=== PATIENT | female | born 1965 | race Caucasian/White ===

== ENCOUNTER 2022-01-15 12:57 | Emergency (ER) | payer OTHER, MEDICAID ==
[2022-01-15] MEDS ORDERED: Ondansetron 4 MG Tab.DIS PO ONE ×2 (12:58→13:31)
[2022-01-15] MEDS ORDERED: Sodium Chloride 0.9% 1,000 ML IV ONE ×2 (13:32→16:08)
[2022-01-15 13:38] LABS: ESTIMATED GFR 106 mL/min (>60)
[2022-01-15] MEDS ORDERED: Ondansetron 4 MG/2 ML SDV ONE (16:08)
[2022-01-15] MEDS: Ondansetron 4 MG/2 ML SDV IVPUSH ONE ×2 (16:08→19:34)
[2022-01-15 17:12] LABS: CORONAVIRUS COVID-19 NAA NEGATIVE (NEGATIVE)
[2022-01-15] MEDS ORDERED: Cephalexin 500 MG Cap PO ONE ×2 (18:44→19:25)
== END 2022-01-15 20:08 | disposition home or self-care (01) ==
LOC: FB.ED 12:57
DX: L03.115 Cellulitis of right lower limb (principal); R11.2 Nausea with vomiting, unspecified; E11.9 Type 2 diabetes mellitus without complications; Z79.4 Long term (current) use of insulin; Z86.73 Personal history of transient ischemic attack (TIA), and cerebral infarction without residual deficits; Z20.822 Contact with and (suspected) exposure to COVID-19
CPT/HCPCS: 0241U; 36415; 80053; 82947; 83605; 83880; 84484; 85025; 87040; 93005; 96361; 96374; 99284; A9270; J2405; J7030; Q0162

== ENCOUNTER 2022-01-25 13:31 | Inpatient (IN) | payer OTHER, MEDICAID ==
[2022-01-25] MEDS ORDERED: Ondansetron 4 MG/2 ML SDV IVPUSH ONE (14:31)
[2022-01-25] MEDS ORDERED: Morphine 4 MG/ML VIAL IVPUSH ONE (14:31)
[2022-01-25] MEDS ORDERED: Iopamidol 755 Mg/ML 100 ML Bottle IV ONE (14:35)
[2022-01-25] MEDS: Sodium Chloride 0.9% 10 ML Syringe FLUSH PRN (14:44)
[2022-01-25] MEDS ORDERED: Sodium Chloride 0.9% 1,000 ML IV SCH (14:45)
[2022-01-25 14:55] LABS: ESTIMATED GFR 106 mL/min (>60)
[2022-01-25 15:03] LABS: ACETAMINOPHEN < 2 ug/mL (<2)
[2022-01-25] MEDS: cefTRIAXone 1 GM Vial IVPUSH SCH (16:14)
[2022-01-25] MEDS: Sodium Chloride 0.9% 1,000 ML IV SCH (16:15)
[2022-01-25] MEDS ORDERED: Albuterol/Ipratropium 3.0-0.5 MG/3 ML Neb Soln NEB ONE (16:16)
[2022-01-25] MEDS ORDERED: predniSONE 20 MG Tab PO ONE (16:17)
[2022-01-25] MEDS ORDERED: Azithromycin 500 MG Tab PO STA (16:18)
[2022-01-25] MEDS ORDERED: Codeine/guaiFENesin 10-100 MG/5 ML Syrup 5 ML Cup PO STA (16:44)
[2022-01-25] MEDS ORDERED: Ondansetron 4 MG/2 ML SDV IVPUSH PRN (17:01)
[2022-01-25] MEDS ORDERED: LORazepam 2 MG/ML SDV IVPUSH PRN (17:43)
[2022-01-25] MEDS ORDERED: Nicotine 7 MG/24 Hr Patch TRDERM SCH (19:00)
[2022-01-25] MEDS: Morphine 2 MG/ML SYRINGE IVPUSH PRN (19:55)
[2022-01-26] MEDS: Sodium Chloride 0.9% 1,000 ML IV SCH ×3 (02:10→23:27)
[2022-01-26] MEDS: Morphine 2 MG/ML SYRINGE IVPUSH PRN ×6 (02:55→23:32)
[2022-01-26 06:40] LABS: ESTIMATED GFR 117 mL/min (>60)
[2022-01-26] MEDS: Enoxaparin 40 MG/0.4 ML Syringe SUBCUT SCH (09:10)
[2022-01-26] MEDS: Potassium Chloride 100 ML IV SCH ×2 (09:13→12:56)
[2022-01-26] MEDS: Nicotine 7 MG/24 Hr Patch TRDERM SCH (09:18)
[2022-01-26 09:46] LABS: HEMOGLOBIN A1C 8.9 % (<5.7)
[2022-01-26] MEDS: cefTRIAXone 1 GM Vial IVPUSH SCH (16:19)
[2022-01-27] MEDS: Sodium Chloride 0.9% 1,000 ML IV SCH ×2 (00:33→09:35)
[2022-01-27] MEDS: Morphine 2 MG/ML SYRINGE IVPUSH PRN ×6 (03:58→16:53)
[2022-01-27 06:49] LABS: ESTIMATED GFR 111 mL/min (>60)
[2022-01-27] MEDS: Nicotine 7 MG/24 Hr Patch TRDERM SCH (08:28)
[2022-01-27] MEDS: Enoxaparin 40 MG/0.4 ML Syringe SUBCUT SCH (08:29)
[2022-01-27] MEDS ORDERED: Magnesium Sulfate/Water 50 ML IV ONE (08:30)
[2022-01-27] MEDS ORDERED: Magnesium Sulfate/Water 50 ML IV SCH (08:30)
[2022-01-27] MEDS: Sodium Chloride 0.9% 10 ML Syringe FLUSH PRN ×5 (09:32→16:55)
[2022-01-27] MEDS ORDERED: SODIUM CHLORIDE 0.9% IV SCH (15:30)
[2022-01-27] MEDS ORDERED: TOBRAMYCIN IV SCH (15:30)
[2022-01-28 10:10] LABS: CREATININE, URINE 188.6 mg/dL (Not Estab.)
== END 2022-01-27 18:05 | DRG 389 ==
LOC: FB.ED 13:31 → FB.MS 16:08 → UNDOADMIN 16:08 → FB.MS 16:55
PROVIDERS: ADMIT Family Medicine; ATTEND Family Medicine
PROC: 0D9670Z Drainage of Stomach with Drainage Device, Via Natural or Artificial Opening (ICD-10-PCS; principal; 2022-01-25)
DX: K56.609 Unspecified intestinal obstruction, unspecified as to partial versus complete obstruction (principal); I50.22 Chronic systolic (congestive) heart failure; N30.01 Acute cystitis with hematuria; K56.7 Ileus, unspecified; I25.10 Atherosclerotic heart disease of native coronary artery without angina pectoris; I11.0 Hypertensive heart disease with heart failure; E11.42 Type 2 diabetes mellitus with diabetic polyneuropathy; E11.319 Type 2 diabetes mellitus with unspecified diabetic retinopathy without macular edema; F31.9 Bipolar disorder, unspecified; I73.9 Peripheral vascular disease, unspecified; F43.10 Post-traumatic stress disorder, unspecified; F41.1 Generalized anxiety disorder; E86.0 Dehydration; G54.6 Phantom limb syndrome with pain; J44.9 Chronic obstructive pulmonary disease, unspecified; Z98.890 Other specified postprocedural states; E78.00 Pure hypercholesterolemia, unspecified; F17.200 Nicotine dependence, unspecified, uncomplicated; E87.6 Hypokalemia; Z89.611 Acquired absence of right leg above knee; Z90.49 Acquired absence of other specified parts of digestive tract; Z86.73 Personal history of transient ischemic attack (TIA), and cerebral infarction without residual deficits; Z88.0 Allergy status to penicillin; Z88.5 Allergy status to narcotic agent; Z88.8 Allergy status to other drugs, medicaments and biological substances; Z86.718 Personal history of other venous thrombosis and embolism; Z79.01 Long term (current) use of anticoagulants
CPT/HCPCS: 36415; 71045; 74018; 74177; 80053; 80061; 80143; 80179; 80307; 81001; 82043; 82150; 82570; 82947; 83036; 83690; 83735; 85025; 87086; 87088; 87186; A9270-GY; J0696; J1650; J2060; J2270; J2405; J3475; J3480; J3490; J7030; Q9967